=== PATIENT | female | born 1975 | race African-American/Black ===

== ENCOUNTER 2020-04-21 12:20 | Inpatient (IN) | payer OTHER ==
[2020-04-21] MEDS ORDERED: CITRIC ACID/SODIUM CITRATE 30 ML UNIT-DOSE CUP PO ONE (12:58)
[2020-04-21] MEDS ORDERED: ELECTROLYTE-148 SOLN 1,000 ML IV SCH (13:00)
--- NOTE | 2020-04-21 13:02 | HP ---
Past Medical History - Primary Care Physician PCP:: Baron Jara - Admission Chief Complaint: 39 weeks, previous c/s, AMA, request of repeat c/s History Source: Patient Limitations to Obtaining History: No Limitations - Past Surgical History Past Surgical History: Yes: Hx Myomectomy: No Hx Transabdominal Cerclage: No - Alcohol/Substance Use Hx Alcohol Use: No History of Substance Use: reports: None - Social History History of Recent Travel: No Review of Systems - Review of Systems Constitutional: reports: No Symptoms Eyes: reports: No Symptoms HENT: reports: No Symptoms Neck: reports: No Symptoms Cardiovascular: reports: No Symptoms Respiratory: reports: No Symptoms Gastrointestinal: reports: No Symptoms Genitourinary: reports: No Symptoms Breasts: reports: No Symptoms Reported Musculoskeletal: reports: No Symptoms Integumentary: reports: No Symptoms Neurological: reports: No Symptoms Endocrine: reports: No Symptoms Hematology/Lymphatic: reports: No Symptoms Psychiatric: reports: No Symptoms Physical Exam - Maternity Constitutional: Yes: Well Nourished, No Distress, Calm Eyes: Yes: WNL, Conjunctiva Clear, EOM Intact HENT: Yes: WNL, Atraumatic, Normocephalic Neck: Yes: WNL, Supple, Trachea Midline Cardiovascular: Yes: WNL, Regular Rate and Rhythm Breast(s): Yes: WNL - Abdominal Exam/OB Fundal Height: 38 Number of Fetuses: Single Presentation: Vertex Contractions: No Intensity: Unaware Monitor Mode: External Heart Rate Location: [facility] Category: I Accelerations: Non-Uniform Decelerations: None - Vaginal Exam/OB Vaginal Bleeding: No Speculum Exam: No Dilatation (cm): 0 Effacement (%): 0 Amniotic Membrane Status: Intact Presentation: Vertex/Position Station: -3 - Physical Exam Musculoskeletal: Yes: WNL Extremities: Yes: WNL Edema: Yes Edema: LLE: 1+, RLE: 1+ Deep Tendon Reflex Grade: Normal +2 Psychiatric: Yes: WNL Hemorrhage Risk Assessment - Risk Factors Medium Risk Factors: Yes: Prior , uterine surgery,or multiple laparotomies Risk Score: 1 Risk Level: Medium Risk Problem List - Problems (1) with 39 completed weeks gestation Code(s): Z3A.39 - 39 WEEKS GESTATION OF (2) Previous section complicating Code(s): O34.219 - MATERNAL CARE FOR UNSP TYPE SCAR FROM PREVIOUS DEL Assessment/Plan admit, fhm for repeat c/s, risks associated with repeat c/s discussed
[2020-04-21 13:42] VITALS: BMI 27.8
[2020-04-21 14:43] LABS: ALBUMIN 2.8 g/dl (3.4-5.0); BILIRUBIN,TOTAL 0.4 mg/dL (0.2-1); BLOOD UREA NITROGEN 3.7 mg/dL (7-18); CALCIUM 8.3 mg/dL (8.5-10.1); CREATININE 0.4 mg/dL (0.55-1.3); POTASSIUM 3.2 mmol/L (3.5-5.1); TOT PROT 6.7 g/dl (6.4-8.2)
[2020-04-21 16:44] LABS: METHADONE, UR NEGATIVE ng/ml (CUTOFF=300); OPIATES, URI NEGATIVE ng/ml (CUTOFF=300); PHENCYCLIDINE,URINE NEGATIVE ng/ml (CUTOFF=25); URINE AMPHETAMINES NEGATIVE ng/ml (CUTOFF=500); URINE BARBITURATES NEGATIVE ng/ml (CUTOFF=200)
[2020-04-21 16:47] LABS: URINE BENZODIAZEPINES NEGATIVE ng/ml (CUTOFF=200)
[2020-04-21 16:51] LABS: COCAINE, UR POSITIVE ng/ml (CUTOFF=300)
[2020-04-21] MEDS ORDERED: ONDANSETRON 4 MG/2 ML VIAL IVPUSH PRN (16:57)
[2020-04-21] MEDS ORDERED: morphine SULFATE/PF 0.5 MG/ML (2cc Syringe - QUVA) ONE (17:09)
[2020-04-21] MEDS ORDERED: PHENYLEPHRINE HCL 10 MG/1 ML SINGLE DOSE VIAL ONE (17:27)
[2020-04-21] MEDS ORDERED: ceFAZolin SODIUM 1 GM VIAL ONE (17:27)
[2020-04-21] MEDS ORDERED: MIDAZOLAM HCL 2 MG/2 ML SINGLE DOSE VIAL ONE (17:27)
[2020-04-21] MEDS ORDERED: KETAMINE HCL 500 MG/10 ML VIAL ONE (17:27)
[2020-04-21] MEDS ORDERED: OXYTOCIN 10 UNITS/ML VIAL ONE (17:38)
[2020-04-21] MEDS ORDERED: BENZOCAINE 28 GM HEMORRHOIDAL OINTMENT RC PRN (18:52)
[2020-04-21] MEDS ORDERED: diphenhydrAMINE HCL 25 MG CAPSULE (FP) PO PRN (18:52)
[2020-04-21] MEDS ORDERED: IBUPROFEN 800 MG/8 ML IJ IVPB PRN (18:52)
[2020-04-21] MEDS ORDERED: WITCH HAZEL 50% (TUCKS) 40 PAD/JAR PAD TP PRN (18:52)
[2020-04-21] MEDS ORDERED: oxyCODONE HCL 5 MG TABLET PO PRN ×2 (18:52)
[2020-04-21] MEDS ORDERED: METHYLERGONOVINE MALEATE 0.2 MG/1 ML AMP IM PRN (18:52)
[2020-04-21] MEDS ORDERED: BENZOCAINE 20% 57 GM BOTTLE TP PRN (18:52)
--- NOTE | 2020-04-21 18:57 | OP ---
Operative Note - Note: Operative Date: 04/21/20 Pre-Operative Diagnosis: 39 weeks, previous c/s Operation: repeat LST c/s Findings: live baby girl 9/ , ROT , clear fluid, fibroid uterus Surgeon: Baron Jara Egyptologist: [address] Anesthesia: Spinal Specimens Removed: placenta Estimated Blood Loss (mls): 500 Drains & Tubes with Location: [facility] Blood Volume Replaced (mls): 0 Operative Report Dictated: Yes
[2020-04-21] MEDS ORDERED: OXYTOCIN 20 UNITS in 0.9% NS 20 UNIT/1,000 ML INFUS.BAG IV SCH (19:00)
[2020-04-22] MEDS: CEFAZOLIN 1 GM/D5W 1 GM/50 ML BAG IVPB SCH ×2 (01:46→09:15)
--- NOTE | 2020-04-22 06:24 | PN ---
Progress Note (short form) - Note Progress Note: pod 1 s/p repeat c/s, substance abuse has generalize itching , pain controlled , no excess vaginal bleeding CBC, BMP 04/21/20 13:36 Last Vital Signs Temp Pulse Resp BP Pulse Ox 98.4 F 65 18 96/65 96 04/22/20 06:00 04/22/20 06:00 04/22/20 06:00 04/22/20 06:00 04/22/20 01:46 abdomen soft, no distension, no cva uterus firm, non tender lochia mild no calf tenderness plan ambulate cbc social service consult pain management Problem List - Problems (1) with 39 completed weeks gestation Code(s): Z3A.39 - 39 WEEKS GESTATION OF (2) Previous section complicating Code(s): O34.219 - MATERNAL CARE FOR UNSP TYPE SCAR FROM PREVIOUS DEL
[2020-04-22 07:28] LABS: BASO % 0.3 % (0-2.0); EOS % 0.6 % (0-4.5); HEMATOCRIT 30.6 % (32.4-45.2); LYMPH % 12.2 % (8-40); MCH 26.9 pg (25.7-33.7); MCHC 32.8 g/dl (32.0-36.0); MEAN CELL VOLUME 82.1 fl (80-96); MONO % 6.6 % (3.8-10.2); NEUT % 80.3 % (42.8-82.8); PLATELET COUNT 144 K/MM3 (134-434); RBC 3.72 M/mm3 (3.60-5.2); RDW 15.9 % (11.6-15.6); WHITE BLOOD COUNT 5.4 K/mm3 (4.0-10.0)
[2020-04-22 07:52] LABS: BLOOD UREA NITROGEN 3.4 mg/dL (7-18); CALCIUM 7.5 mg/dL (8.5-10.1); CREATININE 0.5 mg/dL (0.55-1.3); POTASSIUM 3.1 mmol/L (3.5-5.1)
[2020-04-22] MEDS: ENOXAPARIN NA (PORCINE) 40 MG/0.4 ML DISP.SYRIN SQ SCH (09:15)
[2020-04-22] MEDS: IBUPROFEN 600 MG TABLET (FP) PO PRN ×3 (09:57→21:54)
[2020-04-22] MEDS: ACETAMINOPHEN 325 MG TABLET (FP) PO PRN ×3 (09:58→21:55)
[2020-04-22] MEDS: SIMETHICONE 80 MG TAB.CHEW (FP) PO PRN ×3 (09:59→21:54)
--- NOTE | 2020-04-22 11:13 | PN ---
Progress Note (short form) - Note Progress Note: 45F POD#1 for c section under spinal anesthesia with duramorph. Pt. doing well this am. No anesthesia related complications.
--- NOTE | 2020-04-22 18:43 | OP ---
DATE OF OPERATION: 04/21/2020 PREOPERATIVE DIAGNOSIS: 39 weeks, 2 previous section, request of repeat section. POSTOPERATIVE DIAGNOSIS: 39 weeks, 2 previous section, request of repeat section. PROCEDURE: Repeat low segment transverse section. SURGEON: Giovanni Jara M.D. UTILITY PLANT OPERATIVE: DEANA Ojeda. ANESTHESIA: Spinal. ESTIMATED BLOOD LOSS: 500 mL. FINDINGS: Live baby girl, Apgars 9 and 9, ROT, cord around the neck x1. OPERATION: Patient was taken to operating room with adequate epidural anesthesia. Abdomen and perineum were prepped and draped. Pfannenstiel abdominal skin incision was made. Abdominal wall was cut layer by layer until the peritoneum was exposed and incised. Upon entering the abdominal cavity, the lower uterine segment was identified, and uterovesical fold of the peritoneum was established. The bladder was pushed down. Then with the lower blade of the [place] retractor in the pelvis, a low transverse incision was made. The incision extended laterally with bandage scissors. Amniotic sac was entered. Clear fluid. Head delivered. Nasopharynx was suctioned. A live baby girl was delivered. Apgars 9 and 9. Placenta was delivered manually. Uterine cavity was cleared of all remaining tissue. Uterine incision was closed in 2 layers, the 1st layer with 0 Biosyn continuous suture, the 2nd layer with 0 Biosyn imbricating the 1st layer. Bladder flap was closed with 0 Biosyn continuous suture. Both tubes and ovaries were checked and were normal. Uterus had multiple fibroids at the fundal area, and then no active bleeding was seen. All the lap, sponge, and instrument counts were correct. Peritoneum was closed with 0 Biosyn continuous suture. Muscles were brought together interrupted suture with 0 Biosyn. Fascia was closed with 0 Biosyn continuous sutures. Subcutaneous fat with interrupted sutures 0 Biosyn, and the skin was closed with 3-0 Vicryl subcuticular continuous suture. The patient tolerated the procedure well and left the OR in good condition. GIOVANNI JARA M.D. /[id number]
[2020-04-22] MEDS ORDERED: BISACODYL 10 MG SUPP.RECT PR PRN (18:52)
[2020-04-22] MEDS: POTASSIUM CHLORIDE TABS 20 MEQ TABLET.ER (FP) PO SCH (21:54)
[2020-04-23] MEDS: ACETAMINOPHEN 325 MG TABLET (FP) PO PRN ×3 (07:34→19:09)
[2020-04-23] MEDS: SIMETHICONE 80 MG TAB.CHEW (FP) PO PRN ×3 (07:34→19:10)
[2020-04-23] MEDS: IBUPROFEN 600 MG TABLET (FP) PO PRN ×3 (07:35→19:09)
[2020-04-23 07:48] LABS: BLOOD UREA NITROGEN 3.1 mg/dL (7-18); CALCIUM 7.5 mg/dL (8.5-10.1); CREATININE 0.4 mg/dL (0.55-1.3); POTASSIUM 3.2 mmol/L (3.5-5.1)
[2020-04-23 08:48] LABS: BASO % 0.3 % (0-2.0); HEMATOCRIT 29.2 % (32.4-45.2); HEMOGLOBIN 9.6 GM/dL (10.7-15.3); LYMPH % 12.6 % (8-40); MCHC 32.8 g/dl (32.0-36.0); MEAN CELL VOLUME 82.4 fl (80-96); MEAN PLT VOLUME 9.6 fl (7.5-11.1); MONO % 4.9 % (3.8-10.2); NEUT % 81.2 % (42.8-82.8); PLATELET COUNT 154 K/MM3 (134-434); RBC 3.55 M/mm3 (3.60-5.2); RDW 15.7 % (11.6-15.6); WHITE BLOOD COUNT 5.7 K/mm3 (4.0-10.0)
--- NOTE | 2020-04-23 09:15 | PN ---
Post Progress Note - Subjective Subjective: Ambulating, tolerating PO, not passing flatus yet, lochia decreased, voiding Post Day: 2 Type of Delivery: Repeat C/S Vital Signs: Vital Signs Temperature 98.5 F 04/22/20 22:00 Pulse Rate 73 04/22/20 22:00 Respiratory Rate 18 04/22/20 22:00 Blood Pressure 119/74 04/22/20 22:00 O2 Sat by Pulse Oximetry (%) 96 04/22/20 01:46 Breast Exam: Yes: Other Uterus: Yes: Fundus Firm Incision: Yes: Sutures intact Abdomen/GI: Yes: Abdomen soft Lochia, amount: Moderate Extremities: Yes: Calves non-tender Perineum: Yes: Intact Activity: Ambulating - Labs Labs: CBC WBC 5.7 K/mm3 (4.0-10.0) 04/23/20 07:05 RBC 3.55 M/mm3 (3.60-5.2) L 04/23/20 07:05 Hgb 9.6 GM/dL (10.7-15.3) L 04/23/20 07:05 Hct 29.2 % (32.4-45.2) L 04/23/20 07:05 MCV 82.4 fl (80-96) 04/23/20 07:05 MCH 27.0 pg (25.7-33.7) 04/23/20 07:05 MCHC 32.8 g/dl (32.0-36.0) 04/23/20 07:05 RDW 15.7 % (11.6-15.6) H 04/23/20 07:05 Plt Count 154 K/MM3 (134-434) 04/23/20 07:05 MPV 9.6 fl (7.5-11.1) 04/23/20 07:05 Absolute Neuts (auto) 4.7 K/mm3 (1.5-8.0) 04/23/20 07:05 Neutrophils % 81.2 % (42.8-82.8) 04/23/20 07:05 Lymphocytes % 12.6 % (8-40) 04/23/20 07:05 Monocytes % 4.9 % (3.8-10.2) 04/23/20 07:05 Eosinophils % 1.0 % (0-4.5) 04/23/20 07:05 Basophils % 0.3 % (0-2.0) 04/23/20 07:05 Nucleated RBC % 0 % (0-0) 04/23/20 07:05 Assessment/Plan POD # 2 in stable condition, + Utox and SW following case, CPS evaluation pending. Please refer to consult for further details. Patient desires to be discharged on Saturday. -Continue PP/post- -Encourage ambulation -FOllow up CPS -D/C home on 04/24/20
[2020-04-23] MEDS: ENOXAPARIN NA (PORCINE) 40 MG/0.4 ML DISP.SYRIN SQ SCH (09:47)
[2020-04-23] MEDS: POTASSIUM CHLORIDE TABS 20 MEQ TABLET.ER (FP) PO SCH (09:47)
[2020-04-23] MEDS ORDERED: SENNOSIDES/DOCUSATE COMBO (SENNA PLUS) TABLET (UD) PO PRN (22:00)
[2020-04-24] MEDS: SIMETHICONE 80 MG TAB.CHEW (FP) PO PRN ×5 (00:11→20:07)
[2020-04-24] MEDS: IBUPROFEN 600 MG TABLET (FP) PO PRN ×5 (00:11→20:08)
[2020-04-24] MEDS: ACETAMINOPHEN 325 MG TABLET (FP) PO PRN ×5 (00:12→20:07)
--- NOTE | 2020-04-24 08:15 | PN ---
Post Progress Note - Subjective Subjective: c/o pain scale 6-7/10 bm done after suppository given voiding without difficulty Post Day: 3 Type of Delivery: Repeat C/S Vital Signs: Vital Signs Temperature 97.8 F 04/23/20 22:00 Pulse Rate 84 04/23/20 22:00 Respiratory Rate 18 04/23/20 22:00 Blood Pressure 121/83 04/23/20 22:00 O2 Sat by Pulse Oximetry (%) 96 04/22/20 01:46 Breast Exam: Yes: Soft, Other (not BF ). No: Engorged Uterus: Yes: Fundus Firm, Fundus below umbilicus (tender ) Incision: Yes: Sutures intact (intradermal sutuing, steri strips in situ ). No: Redness, Oozing Abdomen/GI: Yes: Abdomen soft, Tender, Passing flatus, Tolerating PO (diet) Lochia: Yes: Rubra Lochia, amount: Small Extremities: Yes: Calves non-tender Perineum: Yes: Intact Activity: Ambulating - Labs Labs: CBC WBC 5.7 K/mm3 (4.0-10.0) 04/23/20 07:05 RBC 3.55 M/mm3 (3.60-5.2) L 04/23/20 07:05 Hgb 9.6 GM/dL (10.7-15.3) L 04/23/20 07:05 Hct 29.2 % (32.4-45.2) L 04/23/20 07:05 MCV 82.4 fl (80-96) 04/23/20 07:05 MCH 27.0 pg (25.7-33.7) 04/23/20 07:05 MCHC 32.8 g/dl (32.0-36.0) 04/23/20 07:05 RDW 15.7 % (11.6-15.6) H 04/23/20 07:05 Plt Count 154 K/MM3 (134-434) 04/23/20 07:05 MPV 9.6 fl (7.5-11.1) 04/23/20 07:05 Absolute Neuts (auto) 4.7 K/mm3 (1.5-8.0) 04/23/20 07:05 Neutrophils % 81.2 % (42.8-82.8) 04/23/20 07:05 Lymphocytes % 12.6 % (8-40) 04/23/20 07:05 Monocytes % 4.9 % (3.8-10.2) 04/23/20 07:05 Eosinophils % 1.0 % (0-4.5) 04/23/20 07:05 Basophils % 0.3 % (0-2.0) 04/23/20 07:05 Nucleated RBC % 0 % (0-0) 04/23/20 07:05 Problem List - Problems (1) Status post section routine follow-up Code(s): Z39.2 - ENCOUNTER FOR ROUTINE FOLLOW-UP; Z98.891 - HISTORY OF UTERINE SCAR FROM PREVIOUS SURGERY Assessment/Plan pod #3 rc/s , sufstance abuse cocaine pos cps pending , will see pt tomorrow in hosp, pt states cpswill be giving baby to her friend , who will be coming tomorrow , CPS going to verify. she agrees to go for rehab , as per pt arrangements are done in [facility] encourage deep breathing, po fluids ambulation
[2020-04-24 08:20] LABS: BASO % 0.3 % (0-2.0); EOS % 0.9 % (0-4.5); HEMATOCRIT 29.9 % (32.4-45.2); HEMOGLOBIN 9.7 GM/dL (10.7-15.3); LYMPH % 13.9 % (8-40); MCH 27.3 pg (25.7-33.7); MCHC 32.5 g/dl (32.0-36.0); MEAN CELL VOLUME 83.7 fl (80-96); MEAN PLT VOLUME 9.1 fl (7.5-11.1); MONO % 5.6 % (3.8-10.2); NEUT % 79.3 % (42.8-82.8); PLATELET COUNT 150 K/MM3 (134-434); RBC 3.57 M/mm3 (3.60-5.2); RDW 15.6 % (11.6-15.6); WHITE BLOOD COUNT 5.2 K/mm3 (4.0-10.0)
[2020-04-24] MEDS: ENOXAPARIN NA (PORCINE) 40 MG/0.4 ML DISP.SYRIN SQ SCH (09:53)
[2020-04-25] MEDS: IBUPROFEN 600 MG TABLET (FP) PO PRN ×2 (02:59→13:45)
[2020-04-25] MEDS: SIMETHICONE 80 MG TAB.CHEW (FP) PO PRN ×2 (03:03→13:45)
[2020-04-25] MEDS: ACETAMINOPHEN 325 MG TABLET (FP) PO PRN ×2 (03:03→13:44)
--- NOTE | 2020-04-25 09:01 | DS ---
Physical Examination Vital Signs: Vital Signs Temperature 98.0 F 04/24/20 21:00 Pulse Rate 54 L 04/24/20 21:00 Respiratory Rate 18 04/24/20 21:00 Blood Pressure 126/82 04/24/20 21:00 O2 Sat by Pulse Oximetry (%) 98 04/24/20 21:00 Findings/Remarks: Ambulating, tolerating Po, lochia decreased, PP/post-op precautions discussed and encouraged to follow up at health center. Constitutional: Yes: No Distress HENT: Yes: Atraumatic Neck: Yes: Supple Cardiovascular: Yes: Regular Rate and Rhythm Respiratory: Yes: Regular Gastrointestinal: Yes: Normal Bowel Sounds ...Rectal Exam: Yes: Other Renal/: Yes: Other Breast(s): Yes: Other Musculoskeletal: Yes: WNL Extremities: Yes: Other Edema: Yes Edema: LLE: Trace, RLE: Trace Integumentary: Yes: WNL Wound/Incision: Yes: Well Approximated, Sutures Intact Neurological: Yes: Alert, Oriented ...Motor Strength: WNL Psychiatric: Yes: Alert, Oriented Labs: CBC, BMP 04/24/20 08:10 04/23/20 07:05 Discharge Summary Problems reviewed: Yes Reason For Visit: Current Active Problems with 39 completed weeks gestation (Acute) Previous section complicating (Acute) Status post section routine follow-up (Acute) Procedures: Principal: delivery Hospital Course: SW and CPS involvement due to H/O substance abuse and loss custody of previous children Health Concerns: 's disposition by CPS. H/O cocaine abuse Plan of Treatment: follow up outpatient Condition: Stable - Instructions Diet, Activity, Other Instructions: Return to regular diet as tolerated and avoid strenuous activity until cleared by MD. FOllow up within a week of discharge for incision check. Call health center with any questions or concerns. Referrals: Baron Jara MD [Staff Physician] - Disposition: HOME - Home Medications Comprehensive Discharge Medication List: Ambulatory Orders Vitamins (Sjr) - 1 tab PO DAILY 04/21/20 Acetaminophen [Tylenol] 650 mg PO Q6H PRN #20 capsule MDD 5 04/23/20 Ibuprofen 600 mg PO Q6H PRN #20 tablet 04/23/20 Oxycodone HCl 5 mg PO Q6H PRN 3 Days #12 capsule MDD 5 04/23/20
[2020-04-25] MEDS: ENOXAPARIN NA (PORCINE) 40 MG/0.4 ML DISP.SYRIN SQ SCH (09:24)
[2020-04-25 12:06] VITALS: BP 118/93; PULSE 64; TEMP 98.2
--- NOTE | 2020-04-27 11:18 | PATH ---
Surgical Pathology Report Patient Name: HARMONY KUMAR Med. Rec. 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 Specimen(s) Received PLACENTA Clinical History , 39.1 weeks, 02/1999, 08/2006 History of marijuana use during Final Diagnosis PLACENTA, SECTION: 451 G THIRD TRIMESTER PLACENTA WITH TRIVASCULAR UMBILICAL CORD AND UNREMARKABLE PLACENTAL MEMBRANES. Electronically Signed Ashley oPwers M.D. Gross Description The specimen is received fresh labeled placenta and is a 451 gram, 17.0 x 15.5 x 2.5 cm. placenta with attached membranes and umbilical cord. The attached membranes are ruiz, translucent with focal opacities and insert marginally. The umbilical cord measures 40 cm. in length and averages 0.8 cm. in diameter. The cord inserts eccentrically, 4.5 cm. to the nearest margin. No true knots or strictures are identified. Cut surface of the umbilical cord reveals 3 vessels. The surface is martinez blue with moderate fibrin deposition and appropriate caliber vessels. The maternal surface is red-brown with focal defects. Sectioning reveals red-brown, spongy parenchyma. No lesions are identified. Engineer First Assistant sections are submitted in three cassettes as follows: 1- membrane rolls and umbilical cord; 2-3- full thickness sections of placenta. 04/22/2020 [facility]04/22/2020
== END 2020-04-25 16:15 | disposition home or self-care (01) | DRG 540 ==
LOC: JLDR 12:20 → J3W 20:30
PROVIDERS: ADMIT Obstetrics & Gynecology; ATTEND Obstetrics & Gynecology
PROC: 10D00Z1 Extraction of Products of Conception, Low, Open Approach (ICD-10-PCS; principal; 2020-04-21)
DX: O82 Encounter for cesarean delivery without indication (principal); O99.324 Drug use complicating childbirth; F14.20 Cocaine dependence, uncomplicated; O34.211 Maternal care for low transverse scar from previous cesarean delivery; O99.02 Anemia complicating childbirth; D57.3 Sickle-cell trait; Z37.1 Single stillbirth; O34.13 Maternal care for benign tumor of corpus uteri, third trimester; D25.9 Leiomyoma of uterus, unspecified; Z3A.39 39 weeks gestation of pregnancy; Z37.0 Single live birth
CPT/HCPCS: 36415; 80048; 80053; 80307; 85025; 87389; 88307-TC